=== PATIENT | female | born 1995 | race Caucasian/White ===

== ENCOUNTER 2025-03-06 12:21 | Emergency (ER) | payer MEDICAID, SELFPAY ==
[2025-03-06 12:22] VITALS: BMI 21.6
[2025-03-06 12:37] VITALS: BP 124/81; PULSE 77; RESP 18; TEMP 36.6; O2SAT 100
--- NOTE | 2025-03-06 12:42 | XR_ITS ---
Examination: Duplex scan of the lower extremity, unilateral left Date and time of exam: March 06, 2025, 1321 hours INDICATIONS: Left leg cramping beginning 1 month ago Technique: Duplex scan of the extremity veins using B-mode/grayscale imaging and Doppler spectral analysis and color flow Attention is directed to internal echogenicity, compression and augmentation involving these veins, color flow assessment, spectral analysis Findings: Major deep venous structures in the extremity demonstrate normal course and caliber. There is no evidence of deep vein thrombosis. Normal color flow and spectral analysis Impression: Negative for DVT.
--- NOTE | 2025-03-06 13:37 | PD.EDEXREM ---
ED Extremity Problem RME/HPI General Chief complaint: Extremity Problem,Nontraumatic Stated complaint: LEFT LEG/CALF PAIN X1MO SENT BY PMD FOR US Time Seen by Provider: 03/06/25 12:42 Arrival date/time: 03/06/25 12:21 29-year-old female presents to the emergency department for complaint of left calf pain ongoing x 1 month patient was seen by PCP and referred to the ER to rule out DVT Limitations: no limitations Related Data Home Medications ?Medication ?Instructions ?Recorded ?Confirmed divalproex 250 mg tablet,delayed 250 tab PO HS 12/16/21 12/16/21 release mirtazapine 15 mg tablet 7.5 mg PO HS Sleep Disorder 12/16/21 12/16/21 Allergies Allergy/AdvReac Type Severity Reaction Status Date / Time No Known Allergies Allergy Verified 03/06/25 12:24 Review of Systems Review of Systems Systems Reviewed: All systems reviewed, normal except as documented Constitutional Constitutional: Reports system reviewed and no additional complaints, except as documented, Denies fever(s) and Denies headache(s) Eyes Eyes: Reports system reviewed and no additional complaints, except as documented and Denies blurry vision ENT Ears, Nose, Mouth, and Throat: Reports system reviewed and no additional complaints, except as documented, Denies headache(s), Denies nasal congestion and Denies nasal discharge Cardiovascular Cardiovascular: Reports system reviewed and no additional complaints, except as documented, Denies chest pain and Denies dyspnea Respiratory Respiratory: Reports system reviewed and no additional complaints, except as documented, Denies chest congestion, Denies cough and Denies dyspnea Gastrointestinal Gastrointestinal: Reports system reviewed and no additional complaints, except as documented and Denies abdominal pain Musculoskeletal Musculoskeletal: Reports system reviewed and no additional complaints, except as documented, Reports abnormal gait, Denies deformity, Denies numbness, Reports stiffness and Denies tingling Integumentary/Breasts Skin/Breast: Reports system reviewed and no additional complaints, except as documented and Denies rash Neurologic Neurologic: Reports system reviewed and no additional complaints, except as documented, Reports as per HPI, Reports abnormal gait, Denies headache(s), Denies numbness and Denies tingling Past Medical History Past Medical History CARDIAC: Negative Congestive Heart Failure RESPIRATORY: Positive Asthma; Negative Chronic Obstructive Pulmonary Disease (COPD) GASTROINTESTINAL: Positive Gastrointestinal Disorders GENITOURINARY: Negative Renal Disease ENDOCRINE: Negative Diabetes Mellitus Type 1 or Diabetes Mellitus Type 2 PSYCHO/SOCIAL: Positive Bipolar Disorder and Depression Social History SMOKING STATUS: Never smoker SUBSTANCE USE: does not use ED Exam General Limitations: Present no limitations General appearance: Present alert and in no apparent distress Head Head exam: Present atraumatic, normocephalic and normal inspection Eye Eye exam: Present normal appearance, PERRL and EOMI ENT ENT exam: Present normal exam, normal oropharynx and mucous membranes moist Neck Neck exam: Present normal inspection, full ROM and trachea midline Chest Chest inspection: Present normal inspection and symmetric chest wall rise Respiratory Respiratory exam: Present normal lung sounds bilaterally Cardiovascular Cardiovascular exam: Present regular rate, normal rhythm and normal heart sounds Abdominal Exam Abdominal exam: Present soft and normal bowel sounds Extremities Exam Extremities exam: Present full ROM, tenderness (left calf perera ), normal capillary refill and calf tenderness (left leg pain ); Absent pedal edema or joint swelling Back Exam Back exam: Present normal inspection and full ROM Neurological Exam Neurological exam: Present alert, oriented X3 and CN II-XII intact Psychiatric Psychiatric exam: Present normal affect and normal mood Skin Skin exam: Present warm, dry, intact and normal color Course Quality Measures none Orders Category Date Time Status US venous doppler LE LT Stat Exams 03/06/25 12:42 Completed Vital Signs Vital signs: Vital Signs Temperature 97.8 F 03/06/25 12:37 Pulse Rate 77 03/06/25 12:37 Respiratory Rate 18 03/06/25 12:37 Blood Pressure 124/81 03/06/25 12:37 Pulse Oximetry (%) 100 03/06/25 12:37 Oxygen Delivery Method Room Air 03/06/25 12:37 o2 sat 100% r.a wnl Extremity Problem MDM Narrative MDM Narrative:: 29-year-old female presents to the emergency department for complaint of left calf pain ongoing x 1 month patient was seen by PCP and referred to the ER to rule out DVT Clinically patient well-appearing does not appear ill or toxic and in no acute distress patient clinically does not have any evidence of DVT Patient is no bruising no swelling negative Nicholas sign Imaging obtained no acute emergent findings noted no DVT noted Patient discharged home in no distress to follow-up with primary care doctor in the next 24 to 48 hours and for any worsening symptoms to return to the ER immediately Patient data External records reviewed:: [facility] previous records Clinical information provided by:: patient Social determinants that could affect healthcare access:: none Patient has the following chronic illnesses:: none How is presenting disease/condition affected by chronic disease/condition?: no chronic disease Evaluation data The following diagnostics were reviewed and interpreted by me:: radiology exam(s) Lab and/or radiology exams considered but not ordered:: Radiology obtained Interpretation Summary: Reviewed by me Medications / Prescriptions Medications or Prescriptions considered but not ordered:: Given no meds Medication administrations:: Given no meds Consultations Consultation(s) initiated? (list below): No Diagnosis Extremity Problem Differential Diagnosis: herpes zoster, gout, cellulitis and superficial thrombophlebitis Most likely diagnosis given after review of the tests above:: Leg pain left Admission Indicated Admission indicated?: not indicated Admission Request Was there a request for admission?: No Disposition Plan Disposition Plan: Discharge Discharge Attestation Discharge Attestation: The patient and all family members were given an opportunity to ask questions and understood the discharge instructions. Discharge instructions specifically effects, indications for sooner follow up or return to the emergency department, and the expected course of current diagnosis. Patient condition: Stable Discharge Plan Plan Patient Disposition: HOME (Self Care) Discharge Disposition comment: stable Prescriptions/Referrals Prescriptions/Med Rec: No Action mirtazapine 15 mg tablet 7.5 mg PO HS Patient Comments: take 1 tablet by mouth at bedtime divalproex 250 mg tablet,delayed release (DR/EC) 250 tab PO HS Problem List Clinical Impression: Left leg pain Patient/Caregiver Discharge Instructions Education Materials: ED Myalgias Additional Instructions: Please follow up with your primary care doctor in the next 24-48hrs for any worsening symptoms return here immediately Print Language: Slovak Stand Alone Forms: Cande Award Info., Patient Portal Info Letter PA/CORROSION CONTROL TECHNICIAN Supervising Physician PA/CORROSION CONTROL TECHNICIAN Supervising Physician: dr demarco
== END 2025-03-06 14:31 | disposition home or self-care (01) ==
LOC: SERX 14:08
PROVIDERS: Emergency Provider Nurse Practitioner Primary Care
DX: M79.605 Pain in left leg (principal)
CPT/HCPCS: 93971; 99282